=== PATIENT | female | born 1950 | race Caucasian/White ===

== ENCOUNTER 2018-05-02 08:22 | Emergency (ER) | payer BC, MEDICARE ==
--- NOTE | 2018-05-02 09:24 | EDM.PDOC ---
ED HPI GENERAL MEDICAL PROBLEM - General Chief Complaint: General Stated Complaint: L SIDE SCIATIC / HIP PAIN Time Seen by Provider: 05/02/18 09:21 Source of Information: Reports: Patient, RN Notes Reviewed History Limitations: Reports: No Limitations - History of Present Illness INITIAL COMMENTS - FREE TEXT/NARRATIVE: 67-year-old female presents to the emergency department today complaint of left hip pain low back pain, she states is been going on for the last 2 weeks she denies any trauma, she has been doing some walking, however the pain does seem to get worse when she sits or stays in one position too long it's been difficult for her to sleep left sciatic Pain Score (Numeric/FACES): 5 - Related Data Allergies Allergy/AdvReac Type Severity Reaction Status Date / Time No Known Allergies Allergy Verified 05/02/18 08:37 Home Meds: Home Meds Citalopram Hydrobromide [Celexa] 20 mg PO DAILY 09/19/13 [History] Pantoprazole Sodium 40 mg PO DAILY 09/19/13 [History] Aspirin [Adult Low Dose Aspirin EC] 81 mg PO DAILY #100 tablet.dr 09/20/13 [Rx] atorvaSTATin [Lipitor] 20 mg PO BEDTIME #30 tab 09/20/13 [Rx] Cholecalciferol (Vitamin D3) [Vitamin D3] 1,000 unit PO DAILY 05/02/18 [History] Past Medical History Cardiovascular History: Reports: High Cholesterol Respiratory History: Reports: Other (See Below) Other Respiratory History: cpap at home Gastrointestinal History: Reports: [employer] History: Reports: - Past Surgical History Respiratory Surgical History: Reports: None GI Surgical History: Reports: Appendectomy, Cholecystectomy Female Surgical History: Reports: Section Musculoskeletal Surgical History: Reports: Shoulder Surgery Social & Family History - Tobacco Use Smoking Status *Q: Never Smoker - Recreational Drug Use Recreational Drug Use: No ED ROS GENERAL - Review of Systems Review Of Systems: See Below Musculoskeletal: Reports: Joint Pain (hip left) Neurological: Reports: No Symptoms ED EXAM, GENERAL - Physical Exam Exam: See Below Free Text/Narrative:: Examination of the back she has limited range of motion secondary to pain there is no specific tenderness spinally or paraspinally she is tender over the greater trochanter of the left hip Exam Limited By: No Limitations General Appearance: Alert, WD/WN, No Apparent Distress Respiratory/Chest: No Respiratory Distress Course - Vital Signs Last Recorded V/S: Last Vital Signs Temp 96.8 F 05/02/18 08:35 Pulse 86 05/02/18 08:35 Resp 16 05/02/18 08:35 BP 184/93 H 05/02/18 08:35 Pulse Ox 98 05/02/18 08:35 - Orders/Labs/Meds Meds: Medications Discontinued Medications Generic Name Dose Route Start Last Admin Trade Name Kamla PRN Reason Stop Dose Admin Ketorolac Tromethamine 30 mg 05/02/18 09:21 05/02/18 09:40 Toradol IM 05/02/18 09:22 30 mg ONETIME ONE Administration Departure - Departure Time of Disposition: 12:14 Disposition: Home, Self-Care 01 Condition: Good Clinical Impression: Left hip pain - Discharge Information Referrals: Jazmine Camarillo PA [Primary Care Provider] - Forms: ED Department Discharge Additional Instructions: Continued use ibuprofen as needed for baseline pain control, use Percocet as needed for breakthrough pain please follow-up with your primary care provider in the next 1-2 days for reevaluation - Assessment/Plan Plan: Assessment Acuity = acute Site and laterality = left hip pain Etiology = unclear etiology consider bursitis versus muscle skeletal Manifestations = none Location of injury = Home Lab values = none Plan She did receive some relief with the Toradol injection discharge home with Percocet 5/325 one tablet every 6 hours as needed total #10 she will follow-up with her primary care provider in the next 1-2 days for reevaluation This note was dictated using [employer] voice recognition software please call with any questions on syntax or grammar.
[2018-05-02] MEDS: Ketorolac 30 MG/ML SDV IM ONE (09:40)
== END 2018-05-02 12:25 | disposition home or self-care (01) ==
LOC: JP.ED 08:22
DX: M25.552 Pain in left hip (principal); M54.42 Lumbago with sciatica, left side; Z79.82 Long term (current) use of aspirin; Z79.899 Other long term (current) drug therapy
CPT/HCPCS: 96372; 99283; J1885

== ENCOUNTER 2022-12-22 08:29 | Day surgery (SDC) | payer MEDICARE ==
[2022-12-22] MEDS ORDERED: Lactated Ringers 1,000 ML IV SCH (09:00)
[2022-12-22] MEDS ORDERED: Propofol 200 MG/20 ML SDV ONE ×2 (09:36→10:35)
[2022-12-22] MEDS ORDERED: fentaNYL 50 MCG/ML SDV ONE (09:36)
[2022-12-22] MEDS ORDERED: Midazolam 1 MG/ML 2 ML SDV ONE (09:36)
== END 2022-12-22 12:21 | disposition home or self-care (01) ==
LOC: JP.SDS 08:29
PROVIDERS: ATTEND Student in an Organized Health Care Education/Training Program
DX: Z12.11 Encounter for screening for malignant neoplasm of colon (principal); R13.10 Dysphagia, unspecified; K29.50 Unspecified chronic gastritis without bleeding; K21.00 Gastro-esophageal reflux disease with esophagitis, without bleeding; K44.9 Diaphragmatic hernia without obstruction or gangrene; K57.30 Diverticulosis of large intestine without perforation or abscess without bleeding
CPT/HCPCS: 43239; 88305; G0121; J2250; J2704; J3010; J7120

== ENCOUNTER 2023-02-26 06:58 | Day surgery (SDC) | payer MEDICARE ==
[2023-02-26] MEDS ORDERED: Sodium Chloride 0.9% 10 ML Syringe FLUSH PRN (07:30)
== END 2023-02-26 08:28 | disposition home or self-care (01) ==
LOC: JP.SDS 06:58
PROVIDERS: ATTEND Ophthalmology
DX: H26.9 Unspecified cataract (principal); Z79.899 Other long term (current) drug therapy
CPT/HCPCS: 66984; J3490

== ENCOUNTER 2023-03-12 06:36 | Day surgery (SDC) | payer MEDICARE ==
[2023-03-12] MEDS ORDERED: Sodium Chloride 0.9% 10 ML Syringe FLUSH PRN (07:15)
== END 2023-03-12 08:05 | disposition home or self-care (01) ==
LOC: JP.SDS 06:36
PROVIDERS: ATTEND Ophthalmology
DX: H26.9 Unspecified cataract (principal); E78.5 Hyperlipidemia, unspecified; K21.9 Gastro-esophageal reflux disease without esophagitis; G47.33 Obstructive sleep apnea (adult) (pediatric)
CPT/HCPCS: 66984; J3490